=== PATIENT | female | born 1940 | race Caucasian/White ===

== ENCOUNTER → 2020-12-05 | Day surgery (SDC) | payer OTHER, SELFPAY ==
[~2020-12-05] MED LIST: ADULT LOW DOSE81 MG PO; BENADRYL PO; BENADRYL25 MG PO; CENTRUM SILVER1 EAC1 PO; CETIRIZINE HCL10 MG PO; CIPRO500 MG PO; FELODIPINE ER10 MG PO; FLAGYL500 MG PO; FLONASE ALLER15.8 ML; HYDROCODON-ACE1 EAC4 PO; LACTINEX TABLET1 EA PO; LINZESS145 MCG PO; LOPRESSOR 25 MG25 MG PO; MONTELUKAST SOD10 MG PO; NEXIUM40 MG PO; OMEPRAZOLE40 MG PO; PRILOSEC OTC20 MG PO; PROPYLTHIOURACI50 MG PO; PYRIDIUM200 MG PO; REPATHA INJ; SUDAFED PO; VASCEPA1 GM PO; VITAMIN D350 MC3 PO; XYZAL5 MG PO; ZOFRAN ODT 4 MG4 MG PO
== END | disposition home or self-care (01) ==
LOC: OR 11:06
PROVIDERS: Urology
PROC: 0TJB8ZZ Inspection of Bladder, Via Natural or Artificial Opening Endoscopic (ICD-10-PCS; principal; 2020-12-05 13:05)
DX: C67.8 Malignant neoplasm of overlapping sites of bladder (principal); F17.200 Nicotine dependence, unspecified, uncomplicated; K21.9 Gastro-esophageal reflux disease without esophagitis; I10 Essential (primary) hypertension; E78.5 Hyperlipidemia, unspecified; M81.0 Age-related osteoporosis without current pathological fracture; Z87.440 Personal history of urinary (tract) infections; Z88.2 Allergy status to sulfonamides; Z88.8 Allergy status to other drugs, medicaments and biological substances; Z79.82 Long term (current) use of aspirin; Z79.891 Long term (current) use of opiate analgesic; Z79.899 Other long term (current) drug therapy
CPT/HCPCS: J7040

== ENCOUNTER → 2021-01-02 | Day surgery (SDC) | payer OTHER | END | disposition home or self-care (01) | LOC: OR 11:58 | PROVIDERS: Urology | DX: C67.8 Malignant neoplasm of overlapping sites of bladder (principal); K21.9 Gastro-esophageal reflux disease without esophagitis; I10 Essential (primary) hypertension; K27.9 Peptic ulcer, site unspecified, unspecified as acute or chronic, without hemorrhage or perforation; E78.5 Hyperlipidemia, unspecified; Z82.49 Family history of ischemic heart disease and other diseases of the circulatory system; Z77.29 Contact with and (suspected) exposure to other hazardous substances; Z88.2 Allergy status to sulfonamides; Z79.82 Long term (current) use of aspirin | CPT/HCPCS: 36415; 80048; 93005; C1769; J1100; J1885; J1956; J2001; J2270; J2405; J2704; J3010; J7030; J7120 ==

== ENCOUNTER → 2021-05-29 | Outpatient (CLI) | payer OTHER | LOC: HEART 5 09:15 | DX: I20.8 Other forms of angina pectoris (principal) | CPT/HCPCS: 78452; A9502; J2785 ==

== ENCOUNTER → 2022-03-17 | Outpatient (CLI) | payer OTHER | LOC: KOH-I 15:28 | DX: C67.9 Malignant neoplasm of bladder, unspecified (principal); Z85.51 Personal history of malignant neoplasm of bladder; R93.41 Abnormal radiologic findings on diagnostic imaging of renal pelvis, ureter, or bladder; K74.60 Unspecified cirrhosis of liver | CPT/HCPCS: 74176 ==